=== PATIENT | female | born 2000 | race Caucasian/White ===

== ENCOUNTER 2024-02-15 08:57 | Emergency (ER) | payer SELFPAY ==
[~2024-02-15] VITALS: Ht 144.8 cm; Wt 68.0 kg
[2024-02-15 09:05] VITALS: O2SAT 100
[2024-02-15 09:26] LABS: HEMATOCRIT. 41.2 % (36.0-48.0); HEMOGLOBIN. 13.3 g/dL (12.0-16.0); MEAN CORPUSCULAR HEMOGLOBIN 25.9 pg (28.0-32.0); MEAN CORPUSCULAR HGB CONC 32.2 g/dL (31.0-37.0); MEAN CORPUSCULAR VOLUME 80.4 fL (81.0-99.0); MEAN PLATELET VOLUME 7.7 fl (7.4-10.4); PLATELET 428 x1000/uL (130-400); RED BLOOD CELL COUNT 5.12 mill/uL (4.2-5.4); RED CELL DISTRIBUTION WIDTH 13.7 % (11.6-14.6); WHITE BLOOD COUNT 15.9 x1000/uL (4.5-11.0)
[2024-02-15 09:30] LABS: CLARITY URINE CLEAR (CLEAR); COLOR URINE YELLOW (YELLOW); GLUCOSE URINE NEGATIVE (NEGATIVE); KETONES URINE 3+ (NEGATIVE); LEUKOCYTE ESTERASE URINE NEGATIVE (NEGATIVE); NITRITE URINE NEGATIVE (NEGATIVE); OCCULT BLOOD URINE NEGATIVE (NEGATIVE); PROTEIN URINE 1+ (NEGATIVE); SPECIFIC GRAVITY URINE 1.019 (1.005-1.030)
[2024-02-15 09:31] LABS: DIFFERENTIAL COMMENT 1
[2024-02-15 09:37] LABS: CHLORIDE 105 mEq/L (98-107); POTASSIUM 3.5 mEq/L (3.5-5.1); SODIUM 136 mEq/L (136-145)
[2024-02-15 09:38] LABS: CALCIUM 9.9 mg/dL (8.7-10.4); CARBON DIOXIDE 25 mEq/L (21-32)
[2024-02-15 09:43] LABS: CREATININE 0.6 mg/dL (0.6-1.0); GLUCOSE 106 mg/dL (70-105); UREA NITROGEN BLOOD 6 mg/dL (9-23)
[2024-02-15 09:45] LABS: ALANINE AMINOTRANSFERASE 22 IU/L (10-49); ALBUMIN 4.7 g/dL (3.2-4.8); ASPARTATE AMINOTRANSFERASE 17 IU/L (<34); BILIRUBIN DIRECT 0.2 mg/dL (<=3.0); BILIRUBIN TOTAL 0.5 mg/dL (0.1-1.0); PROTEIN TOTAL 8.1 g/dL (6.0-8.3)
[2024-02-15 09:54] LABS: MUCUS URINE 1+ /lpf (< = 2+); SQUAMOUS EPITHELIAL CELL URINE 2+ /lpf (RARE/1+)
[2024-02-15] MEDS ORDERED: DICYCLOMINE HCL 20MG TABLET PO STA (09:54)
[2024-02-15 09:56] LABS: BACTERIA URINE 1+
[2024-02-15 09:57] LABS: RBC URINE 0-2 /hpf (0-2); WBC URINE 0-2 /hpf (0-2)
[2024-02-15] MEDS: ONDANSETRON 4MG ODT PO STA (10:15)
[2024-02-15] MEDS: DICYCLOMINE HCL 10MG CAPSULE PO NR (10:16)
[2024-02-15] MEDS: MAGNESIUM/ALUMINUM HYDROXIDE/SIMETHICONE 30ML UDC PO ONE (10:16)
[2024-02-15] MEDS ORDERED: DICY20TA2 MT (11:32)
[2024-02-15] MEDS ORDERED: ONDA-239 PO (11:32)
[2024-02-15] MEDS ORDERED: HYDR-4001 MT (11:32)
[2024-02-15] MEDS: HYDROCODONE/ACETAMINOPHEN 5/325MG TABLET PO STA (11:43)
[2024-02-15 11:44] VITALS: BP 124/77; PULSE 87; RESP 18; TEMP 37.05852; O2SAT 100
[2024-02-15 15:42] LABS: PLATELET ESTIMATE SLIGHTLY INCREASED
== END 2024-02-15 12:22 | disposition home or self-care (01) ==
LOC: ER 08:57
DX: R10.9 Unspecified abdominal pain (principal)
CPT/HCPCS: 99284; 80076; 80048; 81003; 81025; 83690; 85025; 36415; Q0162